=== PATIENT | female | born 1965 | race Caucasian/White ===

== ENCOUNTER 2019-06-17 17:12 | Emergency (ER) | payer OTHER ==
[~2019-06-17] VITALS: Ht 157.5 cm; Wt 72.6 kg
[2019-06-17 17:43] VITALS: BP_SYST 123
--- NOTE | 2019-06-17 18:25 | NUR ---
Patient transported to radiology via wheelchair, accompanied by security technician.
--- NOTE | 2019-06-17 18:29 | NUR ---
Returned from radiology, back to [facility].
--- NOTE | 2019-06-17 18:41 | NUR ---
ER Dr. Burrell at bedside examining patient.
--- NOTE | 2019-06-17 18:42 | NUR ---
RN makes assessment on the pt , she is accompanied by her sister. pt is c/o "migraine" she stated. Pt stated she has hx of DM 2 and high cholesterol. pt is stable on the monitor and VS.
--- NOTE | 2019-06-17 18:42 | NUR ---
IV access has been placed with a 20g in the left ac in one attempt. great blood return and labs drawn as well.
[2019-06-17] MEDS ORDERED: NACL 0.9% 1,000 ML IV ONE (18:47)
[2019-06-17] MEDS ORDERED: GLIP5TAB26 PO (18:48)
[2019-06-17] MEDS ORDERED: ONDANSETRON HCL 4 MG/2 ML VIAL IVP ONE (19:00)
[2019-06-17] MEDS ORDERED: MORPHINE 4 MG/ML INJ. SYRINGE IVP ONE (19:00)
[2019-06-17 19:02] LABS: BASOPHILS # (AUTO) 0.1 K/uL (0.0-0.2); BASOPHILS % (AUTO) 0.9 % (0.0-2.0); EOSINOPHILS # (AUTO) 0.1 K/uL (0.0-0.4); EOSINOPHILS % (AUTO) 0.7 % (0.0-4.0); HEMATOCRIT 37.6 % (36-48); HEMOGLOBIN 13.1 g/dL (12.0-16.0); LYMPHOCYTES # (AUTO) 1.9 K/uL (1.0-5.5); LYMPHOCYTES % (AUTO) 18.2 % (20.5-51.5); MEAN CORPUSCULAR HEMOGLOBIN 30 pg (27-31); MEAN CORPUSCULAR HGB CONC 35 % (32-36); MEAN CORPUSCULAR VOLUME 85 fL (79.0-98.0); MONOCYTES # (AUTO) 0.8 K/uL (0.0-1.0); MONOCYTES % (AUTO) 7.4 % (1.7-9.3); NEUTROPHILS # (AUTO) 7.8 K/uL (1.8-7.7); NEUTROPHILS % (AUTO) 72.8 % (40.0-70.0); PLATELET COUNT (AUTO) 268 K/uL (130-430); RED BLOOD CELL COUNT(AUTO) 4.42 MIL/uL (4.2-6.2); RED CELL DISTRIBUTION WIDTH 14.1 % (9.0-15.0); WHITE BLOOD COUNT (AUTO) 10.7 K/uL (4.8-10.8)
--- NOTE | 2019-06-17 19:02 | NUR ---
pt has been given all ordered medications. report given to maintenance supervisor 2nd shift.
[2019-06-17 19:20] LABS: CALCIUM 7.7 mg/dL (8.4-11.0); CREATININE 0.56 mg/dL (0.55-1.30); POTASSIUM 3.3 mmol/L (3.5-5.1)
--- NOTE | 2019-06-17 19:20 | NUR ---
Report received from Vernell RN.
[2019-06-17 19:25] LABS: ALBUMIN 3.5 g/dL (3.4-4.8); TOTAL BILIRUBIN 0.3 mg/dL (0.0-1.0)
--- NOTE | 2019-06-17 20:15 | NUR ---
ER at bedside examining patient.
--- NOTE | 2019-06-17 20:27 | NUR ---
Per MD Collins patient placed on 15L NRB mask for 100% oxygen. Patient tolerating well. Will continue to follow up and monitor.
[2019-06-17] MEDS ORDERED: METOCLOPRAMIDE HCL 10 MG/2 ML VIAL IVP ONE (20:30)
[2019-06-17] MEDS ORDERED: KETOROLAC TROMETHAMINE 30 MG VIAL IVP ONE (20:30)
[2019-06-17] MEDS ORDERED: MORPHINE 2 MG/ML INJ. SYRINGE IVP ONE (20:30)
--- NOTE | 2019-06-17 20:45 | NUR ---
Patient medicated for pain, tolerated well. Sister at bedside, and spouse. Patient encouraged to rest. Will continue to follow up and monitor.
[2019-06-17 21:09] LABS: BILIRUBIN,URINE NEGATIVE (NEGATIVE); BLOOD, URINE NEGATIVE (NEGATIVE); CLARITY/URINE CLEAR (CLEAR); COLOR,URINE YELLOW (YELLOW); GLUCOSE,URINE NEGATIVE (NEGATIVE); KETONES,URINE NEGATIVE (NEGATIVE); LEUKOCYTE ESTERASE ,URINE NEGATIVE (NEGATIVE); NITRITE, URINE NEGATIVE (NEGATIVE); PROTEIN URINE NEGATIVE (NEGATIVE); UROBILINOGEN,URINE 0.2 (0.2-1.0)
[2019-06-17 22:10] VITALS: BP_SYST 112
--- NOTE | 2019-06-17 22:10 | NUR ---
Patient given written and verbal discharge instructions and verbalizes understanding. ER MD discussed with patient the results and treatment provided. Patient in stable condition. ID arm band removed. IV catheter removed intact and dressing applied, no active bleeding. No Rx given. Patient educated on pain management and to follow up with PMD. Pain Scale 3/10, tolerable per patient. Opportunity for questions provided and answered. Medication side effect fact sheet provided.
== END 2019-06-17 22:10 | disposition home or self-care (01) ==
LOC: SED 17:12
DX: G43.909 Migraine, unspecified, not intractable, without status migrainosus (principal); E83.51 Hypocalcemia; E87.6 Hypokalemia; E78.00 Pure hypercholesterolemia, unspecified; E11.9 Type 2 diabetes mellitus without complications; F17.200 Nicotine dependence, unspecified, uncomplicated
CPT/HCPCS: 36415; 70450; 80053; 81003; 81025; 85025; 93005; 96374; 96375; 96376; 99284; J1885; J2270 ×2; J2405; J2765; J7030